=== PATIENT | male | born 1960 | race Caucasian/White ===

== ENCOUNTER 2018-06-10 16:20 | Emergency (ER) | payer OTHER ==
[2018-06-10] MEDS ORDERED: Adenosine* 3 MG/ML VIAL ONE (16:53)
--- NOTE | 2018-06-10 17:08 | ED ---
Palpitations / Dysrhythmia - HPI Summary HPI Summary: This is yvonne Spencer documenting for attending Hung Ponce MD. This patient is a 57 year old M presenting to [facility] accompanied by his with a chief complaint of dysrhythmia since 15:50. The patient took his pulse rate at home and notes that it was in the 190s. The patient reports that his symptoms began when he stood up after bending down to kiss his dogs head. The patient rates the pain 0/10 in severity. Symptoms aggravated by nothing. Symptoms alleviated by nothing. Patient reports mild dizziness. Patient denies chest pain. The patient reports that he has experienced the same symptoms after he had open heart surgery at [facility] in 2003. 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 The patient notes his at baseline his pulse rate and blood pressure are both quite low. The patient takes Warfarin. - History of Current Complaint Chief Complaint: EDDysrhythmPalp Hx Obtained From: Patient Onset/Duration: Sudden Onset, Lasting Hours, Still Present Severity Initially: Mild Severity Currently: Mild Character: Fast Aggravating: Nothing Alleviating: Nothing Associated Signs & Symptoms: Dizzy - Allergy/Home Medications Allergies/Adverse Reactions: Allergies Allergy/AdvReac Type Severity Reaction Status Date / Time MS Cephalexin [From Keflex] Allergy Unknown Verified 12/15/14 07:10 Reaction Details MS Moxifloxacin [From Avelox] Allergy Unknown Verified 12/15/14 07:10 Reaction Details PMH/Surg Hx/FS Hx/Imm Hx Endocrine/Hematology History: Denies: Hx Diabetes Cardiovascular History: Reports: Hx Aneurysm - ascending aorta, Hx Valvular Heart Disease - aortic valve replacement, Other Cardiovascular Problems/ Disorders - TACHYCARDIA Denies: Hx Congestive Heart Failure, Hx Pacemaker/ICD Respiratory History: Reports: Hx Sleep Apnea Denies: Other Respiratory Problems/Disorders History: Denies: Hx Renal Disease Sensory History: Reports: Hx Contacts or Glasses Denies: Hx Hearing Aid Opthamlomology History: Reports: Hx Contacts or Glasses Psychiatric History: Reports: Hx Depression - mild Denies: Hx Panic Disorder - Surgical History Surgery Procedure, Year, and Place: VALVE REPLACEMENT AT [facility] - [facility] - 29 CAVGJ-514 : COND 5 1.5T & 3.0T MAX SPAT GRADIENT - LESS THAN OR EQUAL TO 3000GAUSS /cm. Partial L great toe amputation Hx Anesthesia Reactions: No - Immunization History Immunizations Up to Date: Yes Infectious Disease History: No Infectious Disease History: Denies: Traveled Outside the [place] in Last 30 Days - Family History Known Family History: Positive: None - patient denies FHx - Social History Alcohol Use: Daily Alcohol Amount: 1 beer per day Substance Use Type: Reports: None Hx Tobacco Use: Yes Smoking Status (MU): Former Smoker Type: Cigarettes Amount Used/How Often: 1.5 PACKS A DAY Have You Smoked in the Last Year: No Review of Systems Negative: Fever Negative: Epistaxis Positive: Palpitations - tachycardia. Negative: Chest Pain Neurological: Other - dizziness All Other Systems Reviewed And Are Negative: Yes Physical Exam - Summary Physical Exam Summary: VITAL SIGNS: Reviewed. GENERAL: Patient is a well-developed and nourished MALE who is lying comfortable in the stretcher. Patient is not in any acute respiratory distress. HEAD AND FACE: No signs of trauma. No ecchymosis, hematomas or skull depressions. No sinus tenderness. EYES: PERRLA, EOMI x 2, No injected conjunctiva, no nystagmus. EARS: Hearing grossly intact. Ear canals and tympanic membranes are within normal limits. MOUTH: Oropharynx within normal limits. NECK: Supple, trachea is midline, no adenopathy, no JVD, no carotid bruit, no c- spine tenderness, neck with full ROM. CHEST: Symmetric, no tenderness at palpation LUNGS: Clear to auscultation bilaterally. No wheezing or crackles. CVS: Tachycardia. Regular rhythm, S1 and S2 present, no murmurs or gallops appreciated. ABDOMEN: Soft, non-tender. No signs of distention. No rebound no guarding, and no masses palpated. Bowel sounds are normal. EXTREMITIES: FROM in all major joints, no edema, no cyanosis or clubbing. NEURO: Alert and oriented x 3. No acute neurological deficits. Speech is normal and follows commands. SKIN: Dry and warm Triage Information Reviewed: Yes Vital Signs On Initial Exam: Initial Vitals Temp Pulse Resp BP Pulse Ox 98.1 F 94 16 102/82 97 06/10/18 16:24 06/10/18 16:24 06/10/18 16:24 06/10/18 16:24 06/10/18 16:24 Vital Signs Reviewed: Yes Diagnostics - Vital Signs Vital Signs Temp Pulse Resp BP Pulse Ox 06/10/18 16:24 98.1 F 94 16 102/82 97 - Laboratory Result Diagrams: 06/10/18 17:13 06/10/18 17:13 Lab Statement: Any lab studies that have been ordered have been reviewed, and results considered in the medical decision making process. - EKG 16:35 Cardiac Rate: Tachycardia - at 182 bpm EKG Rhythm: SVT 17:44:00 Cardiac Rate: Tachycardia EKG Rhythm: Atrial Fibrillation EKG Interpretation: Atrial fibrillation at 183 bpm 19:03 Cardiac Rate: NL - at 62 bpm EKG Rhythm: Sinus Rhythm ST Segment: Normal EKG Interpretation: Sinus rhythm at [address] elevations Course/Dx - Course Course Of Treatment: PROCEDURE NOTE: Procedural Sedation. Indications: Cardioversion. [place] Protocol: a timeout was performed and the correct patient and site were verified. Consent: The risks and benefits of monitored anesthesia care, including the risk of aspiration, deep sedation requiring airway management including possible intubation, nausea and vomiting and the risks of not performing the procedure, including severe pain and inability to complete the procedure, were all discussed with the patient. The alternatives of performing the procedure, including local anesthesia and IV analgesia, also discussed. The patient has a ride home available. ASA Class: II-mild systemic disease. Pre-anesthesia evaluation, including history, exam, and informed consent is documented in the ED note above. Monitoring: Continuous monitoring of heart rate, respiratory rate, pulse oximetry and ETCO2. Supplemental oxygen prior to and during procedure via nasal cannula. Resuscitation equipment available at the bedside during sedation. The patient received Versed and Fentanyl and dosages were recorded on the sedation form. The patient was recovered from the sedation without complication or incident. Patient returned to pre-sedation level of awareness. The monitoring was discontinued at this time. Post-anesthesia evaluation: Respiratory function, cardiovascular function, temperature, and mental status did return to pre-anesthetic state. Pain is controlled. Assessment/Plan: This patient is a 57 year old M presenting to [facility] accompanied by his with a chief complaint of dysrhythmia since 15:50. The patient took his pulse rate at home and notes that it was in the 190s. The patient reports that his symptoms began when he stood up after bending down to kiss his dogs head. The patient rates the pain 0/10 in severity. Symptoms aggravated by nothing. Symptoms alleviated by nothing. Patient reports mild dizziness. Patient denies chest pain. The patient reports that he has experienced the same symptoms after he had open heart surgery at [facility] in 2003. 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 The patient notes his at baseline his pulse rate and blood pressure are both quite low. The patient takes Warfarin. Blood test results without any significant abnormality. EKG shows an SVT at 189 bpm. The patient was immediately brought into a room, placed him in the carotid monitor, we obtained 2 IV accesses, the patient starting with IV fluids. I did a couple beagle maneuvers with no change in the heart rate. The patient was given adenosine 6 , and 12 mg however the symptoms do not improve. There was a short spasm with a heart rate increased to an 189 bpm. At this time I was prepared to cardiovert the patient however at this discussed the case with Dr. Ceron and he recommended to give the patient Cardizem 20 mg IV. however the symptoms do not improve. They he recommended to give Lopressor 2.5 mg. At this time Dr. Ceron arrived to the emergency department. He is at bedside and he recommended cardioversion. We cardioverted the patient with 150 J after given Versed and fentanyl. The cardioversion was successful and now the patient is had sinus rhythm at 89 bpm. At this time Dr. Garrett recommends for the patient to be discharged after the patient becomes alert and oriented 3. At approximately 9:30 PM the patient is alert and oriented 3 he is tolerating by mouth without any nausea vomiting and she is ovulating. Therefore the patient was discharged home with follow-up with and Dr. Hebert and Dr. Shankar as well as the primary care physician. He was recommended to return to the emergency room if he develops returns with the same symptoms. He understands and agrees. - Diagnoses Differential Diagnosis/HQI/PQRI: Positive: Hypokalemia, Paroxymal SVT, V-Tach, Other - Atril Fib or flutter Provider Diagnoses: SVT (supraventricular tachycardia) - Physician Notifications Discussed Care Of Patient With: Asa Ceron Time Discussed With Above Provider: 17:11 Instructed by Provider To: Other - Dr. Ceron, company manager, recommends cardioversion. Discussed care with Dr. Ceron again at 17:[address] Ceron agreed to come see the patient in the ED. At 19:45 Dr. Ceron recommended that patient be discharged home, given 12.5 mg metroprolol, and follow up with his primary care physician. - Critical Care Time Critical Care Time: 75-104 min - 104 minutes Discharge - Sign-Out/Discharge Documenting (check all that apply): Patient Departure - Discharge Plan Condition: Stable Disposition: HOME Prescriptions: Metoprolol Tartrate TAB* [Lopressor TAB*] 12.5 mg PO DAILY #20 tab Patient Education Materials: Supraventricular Tachycardia (ED) Referrals: Anuj Funes MD [Primary Care Provider] - Eula Shankar MD [Medical Doctor] - 2 Days Additional Instructions: Follow up with Dr. Shankar, company manager, in 1-2 days. Return to emergency department with any new or worsening symptoms. - Billing Disposition and Condition Condition: STABLE Disposition: Home
[2018-06-10] MEDS: NS 0.9% 1000 ML* 2,000 ML IV ONE ×3 (17:10→18:21)
[2018-06-10] MEDS ORDERED: Diltiazem IV VIAL* 5 MG/ML 10 ML VIAL IV SLOW PU ONE (17:16)
[2018-06-10 17:19] LABS: ABS Basophils 0 10^3/ul (0-0.2); ABS Eosinophils 0.2 10^3/ul (0-0.6); ABS Lymphocytes 1.5 10^3/ul (1.0-4.8); ABS Monocytes 0.6 10^3/ul (0-0.8); ABS Neutrophils 2.6 10^3/ul (1.5-7.7); ABS Nucleated RBC 0 10^3/ul; Eosinophil % 4.1 % (0-6); Hematocrit 41 % (42-52); Hemoglobin 13.5 g/dl (14.0-18.0); Lymphocyte % 30.8 % (25-47); Mean Corpuscular HGB Conc 33 g/dl (31-36); Mean Corpuscular Hemoglobin 30 pg (27-31); Mean Corpuscular Volume 89 fL (80-94); Nucleated Red Blood Cells % 0; Platelet Count 147 10^3/ul (150-450); Red Blood Count 4.57 10^6/ul (4.00-5.40); Red Cell Distribution Width 14 % (10.5-15)
[2018-06-10] MEDS ORDERED: Diltiazem IV* 5 MG/ML 5 ML VIAL (for loading dose/IV Push) (25 MG) ONE (17:21)
[2018-06-10 17:24] LABS: INR 2.85 (0.77-1.02)
[2018-06-10] MEDS ORDERED: Midazolam* 1 MG/ML 5 ML VIAL (5 MG) ONE ×2 (17:53→18:58)
[2018-06-10] MEDS ORDERED: fentaNYL* 50 MCG/ML 2 ML VIAL (100 MCG VIAL) ONE (17:54)
[2018-06-10 17:57] LABS: EGFR Non-African American 79.5 (>60)
[2018-06-10] MEDS ORDERED: Metoprolol Tartrate IV* 1 MG/ML 5 ML VIAL ONE (18:03)
[2018-06-10] MEDS ORDERED: Metoprolol Tartrate IV* 1 MG/ML 5 ML VIAL IV ONE (18:30)
[2018-06-10 18:45] LABS: Urine Appearance Clear; Urine Blood Negative (Negative); Urine Color Straw; Urine Ketones Negative (Negative); Urine Protein Negative (Negative); Urine Specific Gravity 1.005 (1.010-1.030); Urine Urobilinogen Negative (Negative)
[2018-06-10] MEDS ORDERED: Metoprolol Tartrate TAB* 25 MG PO ONE (19:04)
[2018-06-10 21:05] VITALS: BP 102/60
--- NOTE | 2018-06-10 23:51 | CARD ---
CC: Dr. Shankar * CARDIOVERSION PROCEDURE NOTE: DATE OF PROCEDURE: 06/10/18 - EMERGENCY DEPT INDICATIONS: This is a 57-year-old gentleman with history of aortic valve replacement, ascending aorta replacement in 2003 at [facility]. He thinks he may have had arrhythmia immediately after the surgery and in 2013, he was cardioverted by Dr. Garcia for atrial fibrillation. He was doing well until today when he developed a rapid heart beat. He came to the emergency room, was found to be in narrow complex tachycardia at about 180. He failed to respond to IV diltiazem or adenosine 6 and 12. He did have transient slight slowing with some wide complex beats after which he went back into the SVT. DESCRIPTION OF PROCEDURE: Informed consent was obtained. The patient was in a fasting state since 11 o'clock. He was also anticoagulated chronically for his mechanical valve with a therapeutic INR. A single, synchronized biphasic shock of 150 joules was applied with transient reversion to sinus rhythm with some recurrent SVT and APCs and PVCs and subsequently sinus rhythm with some APCs. He was premedicated with 6 mg of Versed and 50 mcg of fentanyl. IMPRESSION: Successful conversion from presumed supraventricular tachycardia or atrial flutter, atypical atrial flutter to sinus rhythm with occasional APCs. The patient will be observed for recovery from sedation and discharge to home later tonight. [id number]/[facility] #: [id number] KAYDEN
--- NOTE | 2018-06-11 03:49 | CONS ---
CC: Dr. Shankar; Dr. Funes.* CARDIOLOGY CONSULTATION: DATE OF CONSULT: 06/10/18 - EMERGENCY DEPT Requested by Dr. Ponce at the ER for assistance of management of SVT. The patient is a patient of Dr. Shankar. HISTORY OF PRESENT ILLNESS: This is a very pleasant 57-year-old gentleman who developed racing heartbeat at about 03:30 p.m. today. He said that he had done some yard work yesterday, may have been a little dehydrated and did some yard work again today. He said he bent over to kiss his dog and when he stood up he felt a little lightheaded and then felt his heart racing. Because of his symptoms, he came to the emergency room and was found to be in narrow complex tachycardia at approximately 180 to 190 beats per minute with diffuse ST depressions. He denied syncope, no chest pain, no shortness of breath. He is aware of the racing heartbeat and felt a little apprehensive about that. He does report that he has 1 cup of caffeinated coffee a day and 1 alcoholic beverage a day on average. However, his did report that he is up to 2 caffeinated coffees a day and had at least 2 alcoholic beverages this morning for going out to the yard. She also states that he did not hydrate with water as instructed. He has a previous history of cardioversion in [address] Garcia for atrial fibrillation and he also had arrhythmias apparently perioperatively in 2003, immediately after surgery. He was seen by Dr. Shankar and Dr. Tafoya at [facility], who suggested observing for recurrence of arrhythmia after the Afib incident, which occurred in the setting of traumatic amputation of the toe in a lawnmower accident. They also advised refraining from alcohol or caffeine at that time. He had been on various beta- blockers, but failed to tolerate them due to lightheadedness and fatigue. PAST MEDICAL HISTORY: Ascending aortic aneurysm with a Bentall procedure in 2003 [facility]. He also has a history of mild sleep apnea which is worse on his back, he did not want to continue with the CPAP. He denies Marfan's. He does have of history of depression and anxiety and he has been on chronic treatment with lorazepam and Bupropion. PAST SURGICAL HISTORY: Includes AVR, Bentall procedure back in 2003. He also had surgery on his left toe after lawnmower accident, which traumatized his toe on the left foot. OUTPATIENT MEDICATIONS: Include: 1. Bupropion SR tablets 150 mg a day. 2. Warfarin. 3. Lorazepam 0.5 mg a day. ALLERGIES: AVELOX and KEFLEX. SOCIAL HISTORY: He drinks about 2 cups of coffee a day. He drinks 1 or more alcoholic beverages a day, on an average 1 he said. He is and has no children. 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 He is accompanied by his , Olga. REVIEW OF SYSTEMS: Review of systems x10 was negative except as above. His last meal was at 11 o'clock this morning. PHYSICAL EXAM: He is a well-developed, well-nourished thin gentleman, in no apparent distress. Heart rate of more than 74, blood pressure 102/74, 6 feet 10 inches, 227 pounds. No significant JVD. Carotids 2+. Cardiac Exam: S1 and S2, with crisp prosthetic valve sounds, tachycardiac. Chest was clear, no CVAT. Healed surgical scar on the sternum consistent with history of thoracotomy. Abdomen: Bowel sounds present, nontender. Femoral pulses are intact without bruits. Distal pulses intact. Motor strength is 5/5 bilaterally. Deep tendon reflexes 2/4. Alert and oriented x3. DIAGNOSTIC STUDIES/LAB DATA: EKG revealed a narrow complex tachycardia at 182 beats per minute with [address] depression, T-wave inversions diffusely. Labs include a CBC with hematocrit slightly low at 41. BUN 15, creatinine 0.97. INR 2.85. An attempt was made to try to control the patient's heart rate with IV Cardizem , which transiently slowed his rhythm, but went back into the SVT. He also got 2.5 of metoprolol, which did not affect his heart rate. He got adenosine, which transiently slowed the heart, cannot exclude atypical flutter waves, but probably he had some PVCs or aberrantly conducted beats, went back into the SVT. A discussion was held with him and his and Dr. Ponce. Given his low normal blood pressures in 98 to 104 range and his continued SVT at a high rate. We decided to proceed with cardioversion. Risks and benefits were discussed and he underwent conscious sedation with 6 mg of Versed and 50 mcg of Fentanyl and underwent successful conversion to sinus rhythm with APCs with a single shock of 150 joules biphasic synchronized. IMPRESSION/PLAN: Supraventricular tachycardia or atypical flutter with a rapid ventricular response resistant to adenosine, Cardizem, and beta quintin. Successful cardioversion. I did explain to the patient and his before and after the cardioversion that the cardioversion does not prevent future episodes. I stressed the importance of lifestyle changes to decrease his risk of recurrent SVT including decreasing his intake of caffeine and alcohol and increasing hydration with water products, but not alcohol, and avoiding alcohol. He has had trouble tolerating beta-blockers in the past due to depression, fatigue, and dizziness; however, he thinks he can tolerate a low dose of beta- quintin. We will try 12.5 mg of metoprolol succinate daily. He is to watch his heart rate and blood pressure at home. He is to follow up with Dr. Shankar within the next week or 2. We will add on a magnesium and TSH to his labs. Further recommendations depend on his clinical course. Critical care time approximately 1 hour. [id number]/[facility] #: [id number] MTDD
== END 2018-06-10 21:02 | disposition home or self-care (01) ==
LOC: ED 16:20
DX: I47.1 Supraventricular tachycardia (principal); I48.91 Unspecified atrial fibrillation; R42 Dizziness and giddiness; Z88.1 Allergy status to other antibiotic agents; Z95.2 Presence of prosthetic heart valve; Z89.412 Acquired absence of left great toe; Z87.891 Personal history of nicotine dependence
CPT/HCPCS: 36415; 80053; 81003; 83735; 84439; 84443; 84484; 85025; 85610; 92960; 93005; 96361; 96375; 99156; 99157; 99284; J0153; J2250; J3010; J3490

== ENCOUNTER 2019-05-26 18:53 | Emergency (ER) | payer OTHER ==
[2019-05-26 19:14] VITALS: BP 108/56
[2019-05-26] MEDS ORDERED: Lidocaine 1% MPF ** 5 ML VIAL INJ ONE (19:41)
[2019-05-26] MEDS ORDERED: Lidocaine/Epineph/Tetraca GEL* 3 ML GEL IN SYR TOPICAL ONE (19:41)
--- NOTE | 2019-05-26 19:46 | UC ---
Laceration HPI - HPI Summary HPI Summary: DROPPED A GLASS BOTTLE ON THE GROUND A FEW HOURS AGO AND ACCIDENTALLY STEPPED ON A PIECE OF GLASS WHICH IS NOW EMBEDDED IN THE BOTTOM OF HIS LEFT FOOT. ALSO SUSTAINED A LACERATION FROM THE GLASS TO HIS RIGHT FOOT ON THE MEDIAL SURFACE AT THE LEVEL OF HIS FIRST MTP JOINT. REPORTS UP TO DATE TETANUS WITHIN THE LAST FEW YEARS. NO ACTIVE BLEEDING ON ARRIVAL. 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 - Laceration Location: Foot Mechanism Of Injury: Sharp Trauma Onset/Duration: Sudden Onset, Lasting Hours, Still Present Severity: Moderate Pain Intensity: 0 Pain Scale Used: 0-10 Numeric - Allergies/Home Medications Allergies/Adverse Reactions: Allergies Allergy/AdvReac Type Severity Reaction Status Date / Time cephalexin [From Keflex] Allergy Mild Rash Verified 05/26/19 19:14 moxifloxacin [From Avelox] Allergy Mild Rash Verified 05/26/19 19:14 levofloxacin [From Levaquin] Allergy Rash Verified 05/26/19 19:14 Home Medications: Home Medications FLUoxetine CAP* [Prozac CAP*] 05/26/19 [History] PMH/Surg Hx/FS Hx/Imm Hx Cardiovascular History: Cardiac Disease - ARTIFICIAL VALVE - Surgical History Surgical History: Yes Surgery Procedure, Year, and Place: VALVE REPLACEMENT AT [facility] - [facility] - 29 CAV[address]-514 : COND 5 1.5T & 3.0T MAX SPAT GRADIENT - LESS THAN OR EQUAL TO 3000GAUSS /cm. Partial L great toe amputation - Family History Known Family History: Positive: None - patient denies FHx - Social History Alcohol Use: Daily Alcohol Amount: 2 OUNCES/DAY Substance Use Type: None Smoking Status (MU): Former Smoker Type: Cigarettes Amount Used/How Often: 1.5 PACKS A DAY Have You Smoked in the Last Year: No When Did the Patient Quit Smoking/Using Tobacco: 1986 - Immunization History Most Recent Influenza Vaccination: fall 2012 Most Recent Tetanus Shot: THINKS <5 YEARS Most Recent Pneumonia Vaccination: n/a Review of Systems All Other Systems Reviewed And Are Negative: Yes Constitutional: Positive: Negative Skin: Positive: Other - LACERATION RIGHT FOOT, FB LEFT FOOT Respiratory: Positive: Negative Cardiovascular: Positive: Negative Gastrointestinal: Positive: Negative Physical Exam Triage Information Reviewed: Yes Appearance: Well-Appearing, No Pain Distress, Well-Nourished Vital Signs: Initial Vital Signs Temp 98 F 05/26/19 19:08 Pulse 54 05/26/19 19:08 Resp 16 05/26/19 19:08 BP 108/56 05/26/19 19:08 Pulse Ox 95 05/26/19 19:08 Vital Signs Reviewed: Yes Eyes: Positive: Conjunctiva Clear ENT: Positive: Hearing grossly normal Neck: Positive: Supple Respiratory: Positive: No respiratory distress, No accessory muscle use Cardiovascular: Positive: Pulses Normal Abdomen Description: Positive: Soft Musculoskeletal: Positive: No Edema Neurological: Positive: Alert Psychological: Positive: Age Appropriate Behavior Skin: Positive: Other - 1.2CM LINEAR LACERATION RIGHT FOOT OVERLYING 1ST MTP JOINT MEDIALLY. PALPABLE FB PLANTAR SURFACE LEFT FOOT DISTALLY OVERLYING 4TH METATARSAL Laceration Repair - Laceration Repair 1 Description: Linear Laceration Size After Repair: Length (cm) - 1.2CM, Width (mm) - 0MM, Depth (mm) - 2MM Modified For Repair: No Type Injection: Local Anesthesia Used: 1.0% Lido Irrigation With Pressure Irrigation Device: Yes Closure Material: Sutures - 3 SIMPLE INTERRUPTED Closure Method: Single Layer Suture Of: Skin Suture Type: Prolene - 5-0 Laceration Course/Dx - Course/Dx Course Of Treatment: WOUNDS CLEANSED AND TIME OUT PERFORMED. LACERATION RIGHT FOOT REPAIRED WITH 3 SIMPLE INTERRUPTED SUTURES. FOLLOW-UP IN 10 DAYS FOR SUTURE REMOVAL. 4 MM GLASS FOREIGN BODY REMOVED IN ENTIRETY FROM PLANTAR SURFACE OF LEFT FOOT USING SPLINTER FORCEPS WITHOUT DIFFICULTY. PATIENT TOLERATED BOTH PROCEDURES WELL. ANTIBIOTICS TWICE DAILY FOR INFECTION PROPHYLAXIS. - Diagnosis Provider Diagnosis: Laceration of right foot, Foreign body in left foot Discharge - Sign-Out/Discharge Documenting (check all that apply): Patient Departure All imaging exams completed and their final reports reviewed: No Studies - Discharge Plan Condition: Stable Disposition: HOME Prescriptions: Amoxicillin PO (*) [Amoxicillin 500 MG CAP*] 500 mg PO Q12H #9 cap Patient Education Materials: Laceration (ED), Soft Tissue Foreign Body (ED) Referrals: Anuj Funes MD [Primary Care Provider] - If Needed Additional Instructions: LACERATION WAS CLOSED WITH 3 SUTURES. GLASS WAS REMOVED FROM LEFT FOOT. NO RETAINED FOREIGN BODY APPRECIATED. KEEP DRESSINGS IN PLACE AND DRY FOR THE FIRST 24 HRS. THEN YOU MAY REMOVE THE DRESSING AND GENTLY CLEANSE WITH SOAP AND WATER. PAT DRY AND RE-BANDAGE. APPLY THIN LAYER ANTIBIOTIC OINTMENT UNDER BANDAGE FOR FIRST 3-4 DAYS ONLY. CHANGE BANDAGE DAILY AND NEEDED IF IT BECOMES SOILED OR WET. SEEK FOLLOW-UP IF YOU DEVELOP SPREADING REDNESS OF THE SKIN, PURULENT DRAINAGE, FEVER, INCREASED PAIN OR ANY OTHER CONCERNING SYMPTOMS. RETURN TO HAVE YOUR 3 SUTURES REMOVED IN 10 DAYS - Billing Disposition and Condition Condition: STABLE Disposition: Home
[2019-05-26] MEDS ORDERED: Amoxicillin PO (*) 500 MG CAP PO ONE (20:21)
== END 2019-05-26 20:48 | disposition home or self-care (01) ==
LOC: UCEAST 18:53
DX: S91.322A Laceration with foreign body, left foot, initial encounter (principal); W25.XXXA Contact with sharp glass, initial encounter; Y92.9 Unspecified place or not applicable; Z95.2 Presence of prosthetic heart valve; Z87.891 Personal history of nicotine dependence
CPT/HCPCS: 12001; 28190; 99212; A9270-GY; G0463

== ENCOUNTER 2022-11-10 09:45 | Observation (INO) ==
[2022-11-10 11:17] LABS: ABS Basophils 0.1 10^3/ul (0-0.2); ABS Eosinophils 0.1 10^3/ul (0-0.6); ABS Lymphocytes 0.9 10^3/ul (1.0-4.8); ABS Monocytes 0.9 10^3/ul (0-0.8); ABS Neutrophils 5.5 10^3/ul (1.5-7.7); Eosinophil % 1.2 %; Hematocrit 32 % (42-52); Hemoglobin 10.3 g/dL (14.0-18.0); Lymphocyte % 12.6 %; Mean Corpuscular HGB Conc 32 g/dL (31-36); Mean Corpuscular Hemoglobin 29 pg (27-31); Mean Corpuscular Volume 90 fL (80-94); Mean Platelet Volume 9.3 fL (7.4-10.4); Platelet Count 139 10^3/uL (150-450); Red Blood Count 3.51 10^6 /uL (4.18-5.48); Red Cell Distribution Width 14 % (10-15); White Blood Count 7.5 10^3/uL (3.5-10.8)
[2022-11-10 12:05] LABS: Calcium 8.3 mg/dL (8.6-10.3); Potassium 4.3 mmol/L (3.5-5.0); eGFR CKD-EPI 97.3 (>60)
[2022-11-10] MEDS ORDERED: Iohexol 350 (CONTRAST) 500 ML MDV IV ONE (13:03)
[2022-11-10 14:43] LABS: ABS Eosinophils 0.1 10^3/ul (0-0.6); ABS Lymphocytes 0.9 10^3/ul (1.0-4.8); ABS Monocytes 0.7 10^3/ul (0-0.8); ABS Neutrophils 5.3 10^3/ul (1.5-7.7); Eosinophil % 0.7 %; Hematocrit 27 % (42-52); Hemoglobin 9.1 g/dL (14.0-18.0); Lymphocyte % 12.4 %; Mean Corpuscular HGB Conc 34 g/dL (31-36); Mean Corpuscular Hemoglobin 30 pg (27-31); Mean Corpuscular Volume 90 fL (80-94); Platelet Count 117 10^3/uL (150-450); Red Blood Count 2.98 10^6 /uL (4.18-5.48); Red Cell Distribution Width 14 % (10-15); White Blood Count 6.9 10^3/uL (3.5-10.8)
[2022-11-10] MEDS ORDERED: Phytonadione Oral Solution 5 MG/25 ML UDC PO ONE (14:46)
[2022-11-10] MEDS ORDERED: Lactated Ringers 1000 ml BAG 1,000 ML IV ONE (19:34)
[2022-11-10] MEDS: Morphine 2 MG/ML SYRINGE IV PRN (20:19)
[2022-11-11] MEDS: Morphine 2 MG/ML SYRINGE IV PRN ×2 (00:37→07:31)
[2022-11-11 07:20] LABS: ABS Eosinophils 0.1 10^3/ul (0-0.6); ABS Lymphocytes 1.2 10^3/ul (1.0-4.8); ABS Monocytes 0.9 10^3/ul (0-0.8); ABS Neutrophils 4.4 10^3/ul (1.5-7.7); Eosinophil % 1.2 %; Hematocrit 28 % (42-52); Hemoglobin 9.4 g/dL (14.0-18.0); Lymphocyte % 17.9 %; Mean Corpuscular HGB Conc 33 g/dL (31-36); Mean Corpuscular Hemoglobin 30 pg (27-31); Mean Corpuscular Volume 90 fL (80-94); Mean Platelet Volume 9.6 fL (7.4-10.4); Platelet Count 123 10^3/uL (150-450); Red Blood Count 3.14 10^6 /uL (4.18-5.48); Red Cell Distribution Width 14 % (10-15); White Blood Count 6.6 10^3/uL (3.5-10.8)
[2022-11-11 07:29] LABS: INR 3.27 (0.88-1.18)
[2022-11-11 07:34] LABS: Potassium 4.1 mmol/L (3.5-5.0); eGFR CKD-EPI 99.4 (>60)
[2022-11-11] MEDS ORDERED: Morphine 2 MG/ML SYRINGE IV PRN (09:23)
[2022-11-11] MEDS ORDERED: Warfarin DAILY REMINDER **NOTE FOLLOW UP SCH (17:00)
[2022-11-11] MEDS ORDERED: Warfarin per PHARMACY **NOTE FOLLOW UP SCH (17:00)
[2022-11-12 06:43] LABS: ABS Eosinophils 0.2 10^3/ul (0-0.6); ABS Lymphocytes 1.2 10^3/ul (1.0-4.8); ABS Monocytes 0.8 10^3/ul (0-0.8); ABS Neutrophils 3.9 10^3/ul (1.5-7.7); Eosinophil % 2.8 %; Hematocrit 27 % (42-52); Hemoglobin 8.9 g/dL (14.0-18.0); Lymphocyte % 20.3 %; Mean Corpuscular HGB Conc 33 g/dL (31-36); Mean Corpuscular Hemoglobin 30 pg (27-31); Mean Corpuscular Volume 89 fL (80-94); Mean Platelet Volume 9.3 fL (7.4-10.4); Platelet Count 130 10^3/uL (150-450); Red Blood Count 2.99 10^6 /uL (4.18-5.48); Red Cell Distribution Width 14 % (10-15); White Blood Count 6.1 10^3/uL (3.5-10.8)
[2022-11-12 07:00] LABS: Calcium 7.9 mg/dL (8.6-10.3); Magnesium 1.8 mg/dL (1.9-2.7); eGFR CKD-EPI 100.2 (>60)
[2022-11-12 07:05] LABS: INR 1.86 (0.88-1.18)
[2022-11-12] MEDS ORDERED: Magnesium Sulfate 2 gm BAG 2 GM/50 ML BAG IVPB ONE (08:44)
[2022-11-12] MEDS ORDERED: Enoxaparin 100 MG/ML SYR SUBCUT SCH (13:00)
[2022-11-12 13:41] VITALS: BP 103/66
== END 2022-11-12 14:40 | disposition home or self-care (01) ==
LOC: ED 09:45 → EDHOLD 09:45 → MEDTELE 11-11 00:29
PROVIDERS: ADMIT Internal Medicine; ATTEND Internal Medicine